=== PATIENT | female | born 1945 | race Caucasian/White ===

== ENCOUNTER 2023-03-09 15:46 | Observation (INO) | payer MEDICARE, SELFPAY ==
[~2023-03-09] VITALS: Ht 154.9 cm; Wt 53.7 kg
[2023-03-09 16:43] LABS: BASO # 0.1 10^3/uL (0.0-0.2); EOS # 0.4 10^3/uL (0.0-0.5); EOS % 5.1 % (0.0-3.0); HEMATOCRIT 36.7 % (36.0-47.0); HEMOGLOBIN 11.7 g/dl (12.0-15.5); LYMPH # 1.8 10^3/uL (1.5-5.0); LYMPH % 25.9 % (24.0-44.0); MEAN CORPUSCULAR HEMOGLOBIN 31.5 pg (27.0-33.0); MEAN CORPUSCULAR HGB CONC 31.9 g/dl (32.0-36.5); MEAN CORPUSCULAR VOLUME 98.9 fl (80.0-96.0); MONO # 0.9 10^3/uL (0.0-0.8); NEUTROPHILS # 3.9 10^3/uL (1.5-8.5); NEUTROPHILS % 54.7 % (36.0-66.0); PLATELET COUNT, AUTOMATED 180 10^3/uL (150-450); RED BLOOD COUNT 3.71 10^6/uL (4.00-5.40); WHITE BLOOD COUNT 7.1 10^3/uL (4.0-10.0)
[2023-03-09 17:06] LABS: ETHYL ALCOHOL (ETHANOL) < 0.003 % (0.000-0.010)
[2023-03-09 17:08] LABS: ACETAMINOPHEN LEVEL < 2.0 UG/ML (10.0-20.0); SALICYLATE LEVEL < 3.0 MG/DL (<30)
[2023-03-09 17:21] LABS: ALBUMIN 3.7 G/DL (3.2-5.2); ALKALINE PHOSPHATASE 85 U/L (46-116); ALT/SGPT 19 U/L (7.0-40); AST/SGOT 48 U/L (<34); BILIRUBIN,DIRECT 0.1 MG/DL (<0.4); BILIRUBIN,TOTAL 0.7 MG/DL (0.3-1.2); BLOOD UREA NITROGEN 27 MG/DL (9-23); CALCIUM LEVEL 9.5 MG/DL (8.3-10.6); CARBON DIOXIDE LEVEL 24 MMOL/L (20-31); CHLORIDE LEVEL 105 MMOL/L (98-107); GLOMERULAR FILTRATION RATE > 60.0 (>39); GLUCOSE, FASTING 82 MG/DL (74-106); POTASSIUM SERUM 5.4 MMOL/L (3.5-5.1); SODIUM LEVEL 139 MMOL/L (136-145); TOTAL PROTEIN 6.6 G/DL (5.7-8.2)
[2023-03-09 17:22] LABS: RSV AMPLIFICATION NEGATIVE (NEGATIVE)
[2023-03-09 17:34] LABS: AMPHETAMINES LEVEL URINE NEGATIVE (NEGATIVE); BARBITURATES URINE NEGATIVE (NEGATIVE); BENZODIAZEPINES URINE NEGATIVE (NEGATIVE); CANNABINOIDS URINE NEGATIVE (NEGATIVE); COCAINE METABOLITE URINE NEGATIVE (NEGATIVE); METHADONE URINE NEGATIVE (NEGATIVE); OPIATES URINE NEGATIVE (NEGATIVE); PHENCYCLIDINE URINE NEGATIVE (NEGATIVE)
[2023-03-09] MEDS ORDERED: NS 500 ML IV ONE (18:20)
[2023-03-09] MEDS ORDERED: NS 1,000 ML IV SCH (18:20)
[2023-03-09] MEDS ORDERED: BUSP10TA79 PO (20:12)
[2023-03-09] MEDS ORDERED: MEMA10TA19 PO (20:12)
[2023-03-09] MEDS ORDERED: LEXA1TAB PO (20:12)
[2023-03-09] MEDS ORDERED: HOME MED LIST COMPLETE! XX SCH (20:45)
[2023-03-09] MEDS: busPIRone 10 MG TAB PO SCH (21:00)
[2023-03-09] MEDS: MEMANTINE 5MG TABLET (NAMENDA) PO SCH (21:00)
[2023-03-09] MEDS ORDERED: ACETAMINOPHEN TAB 650MG DOSE (2X325MG) PO PRN (22:30)
[2023-03-09 23:50] VITALS: BP 141/60; TEMP 97.9; O2SAT 99
[2023-03-10 06:00] VITALS: BP 155/69; TEMP 98; O2SAT 100
[2023-03-10 06:01] LABS: HEMATOCRIT 36.8 % (36.0-47.0); HEMOGLOBIN 11.6 g/dl (12.0-15.5)
[2023-03-10 06:11] LABS: BLOOD UREA NITROGEN 16 MG/DL (9-23); CALCIUM LEVEL 8.9 MG/DL (8.3-10.6); CARBON DIOXIDE LEVEL 29 MMOL/L (20-31); CHLORIDE LEVEL 108 MMOL/L (98-107); CREATININE FOR GFR 0.71 MG/DL (0.55-1.30); GLOMERULAR FILTRATION RATE > 60.0 (>39); GLUCOSE, FASTING 94 MG/DL (74-106); POTASSIUM SERUM 4.1 MMOL/L (3.5-5.1); SODIUM LEVEL 144 MMOL/L (136-145)
[2023-03-10] MEDS ORDERED: LOSA25TA13 PO (08:04)
[2023-03-10] MEDS ORDERED: SELF1KIT MC (08:04)
[2023-03-10] MEDS ORDERED: ESCITALOPRAM OXALATE 10 MG TAB (LEXAPRO) PO SCH (09:00)
[2023-03-10] MEDS: busPIRone 10 MG TAB PO SCH (09:00)
[2023-03-10] MEDS ORDERED: LOSARTAN 25 MG TAB PO SCH (09:00)
[2023-03-10] MEDS: MEMANTINE 5MG TABLET (NAMENDA) PO SCH (09:00)
[2023-03-10] MEDS ORDERED: DOCUSATE SODIUM 100MG CAPSULE PO SCH (09:00)
== END 2023-03-10 11:51 | disposition home or self-care (01) ==
LOC: M ED 15:46 → M ED INP 15:47 → M MSPAV 23:11 → ENRESERV 23:15 → M MS5PR 23:35 → UNDODISOB 23:41 → M MSPAV 03-10 00:12
PROVIDERS: ADMIT Internal Medicine; ATTEND General Practice
DX: G30.9 Alzheimer's disease, unspecified (principal); F02.A18 Dementia in other diseases classified elsewhere, mild, with other behavioral disturbance; I10 Essential (primary) hypertension; D64.9 Anemia, unspecified; F41.9 Anxiety disorder, unspecified; F32.A Depression, unspecified; E87.5 Hyperkalemia; R74.01 Elevation of levels of liver transaminase levels; A49.01 Methicillin susceptible Staphylococcus aureus infection, unspecified site; M25.519 Pain in unspecified shoulder; R53.1 Weakness
CPT/HCPCS: 36415; 51701; 70450; 71045; 80048; 80076; 80143; 80307; 81001; 82077; 82140; 84443; 85014; 85018; 85025; 87040; 87077; 87186; 87631; 93005; 93041; 94760; 96360; 96361; 97161; 97530; 99285; G0378